=== PATIENT | female | born 1935 | race Caucasian/White ===

== ENCOUNTER → 2017-03-27 | Outpatient (CLI) | payer OTHER, MEDICARE ==
[~2017-03-27] MED LIST: AMLO5TAB2 PO; ASPCH81X PO; ATOR-14 PO; BIOT1POW3 SL; CALC-388 PO; CEPH500C2 PO; CHOL1CAP51 PO; FURO40TA3 PO; LPR25 PO; METF500T PO; MULT-190 PO; NAPR1TAB9 PO; OXYC15TA89 PO; SERT1TAB71 PO
== END | disposition home or self-care (01) ==
LOC: C.RDSM 14:01
PROVIDERS: ATTEND Orthopaedic Surgery Sports Medicine
DX: M17.0 Bilateral primary osteoarthritis of knee (principal)

== ENCOUNTER → 2018-03-23 | Outpatient (CLI) | payer OTHER, MEDICARE | END | disposition home or self-care (01) | LOC: C.RDSM 18:17 | PROVIDERS: ATTEND Orthopaedic Surgery Sports Medicine | DX: M17.0 Bilateral primary osteoarthritis of knee (principal) ==

== ENCOUNTER 2021-12-11 05:22 | Observation (INO) ==
--- NOTE | 2021-12-03 09:16 | Anesthesiology Consultation ---
Date of Service December 03, 2021 Assessment & Plan Chart Review Chart Review: Acceptable Risk for Surgery and Patient NOT seen in Pre Admission Testing Consults Requested none History Surgery Operation Date: 12/11/21 07:00 Proposed Procedures p Left Total Knee Arthroplasty - Jeremiah Jensen MD Height/Weight Height: 5 ft 1 in Weight: 81.647 kg Allergies Allergy/AdvReac Type Severity Reaction Status Date / Time No Known Allergies Allergy Verified 12/02/21 11:50 Medications Home Medications Medication Instructions Recorded Confirmed Last Taken amlodipine 5 mg tablet 5 mg PO QAM 07/24/21 12/02/21 Unknown apixaban 5 mg tablet (Eliquis) 5 mg PO BID 07/24/21 12/02/21 Unknown aspirin 81 mg tablet,delayed 81 mg PO QAM 07/24/21 12/02/21 Unknown release atorvastatin 20 mg tablet 20 mg PO HS 07/24/21 12/02/21 Unknown biotin 5 mg capsule 5 mg PO QAM 07/24/21 12/02/21 Unknown cholecalciferol (vitamin D3) 25 25 mcg PO QAM 07/24/21 12/02/21 Unknown mcg (1,000 unit) tablet (Vitamin D3) furosemide 40 mg tablet (Lasix) 40 mg PO QAM 07/24/21 12/02/21 Unknown metformin 500 mg tablet 500 mg PO BID 07/24/21 12/02/21 Unknown metoprolol tartrate 25 mg tablet 25 mg PO BID 07/24/21 12/02/21 Unknown sertraline 100 mg tablet (Zoloft) 100 mg PO QAM 07/24/21 12/02/21 Unknown vitamins A,C,I-pxkn-soebos 14,320 1 cap PO BID 07/24/21 12/02/21 Unknown unit-226 mg-200 unit capsule (PreserVision AREDS) estradiol (Estrace) 1 g VAGINAL UD 12/02/21 12/02/21 Unknown Past Medical History Medical History 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 no longer ta rolan. Port-A-Cath in place Left chest wall Exercise / Class Metabolic Activity III < 4 Walking/Shop/Light housework Past Family History Family History Mother Family history of diabetes mellitus Sister Family history of diabetes mellitus Other No family history of adverse response to anesthesia Past Surgical History Surgical History H/O lymph node biopsy H/O total hysterectomy History of appendectomy History of bilateral tubal ligation History of cataract surgery R/L History of cholecystectomy History of colonoscopy History of ectopic Laparoscopic surgery History of laparoscopy History of tooth extraction History of tubal ligation Past Anesthesia History No Hx of Anesthesia Complications and No Family Hx of Anesthesia Complications History of PONV No Hx of PONV and No Hx of Motion Sickness Social History Smoking Status: Never smoker Do You Dip or Chew Tobacco: No Hx Alcohol Use: No Hx Substance Use: No substance use type: does not use Testing Echocardiogram Date: 07/29/21 EF: 60% LV Function: normal RWMA: + none Other Findings: + diastolic dysfunction (grade 1) Valvular Disease: + (mild ; AVarea 1.45cm2;Peak Grad. 22 Torr;Mean grad. 12 Torr), + MS (mild) and + MR (mild) Stress Test Type: nuclear (lexiscan) Findings: + WNL
[2021-12-11] MEDS ORDERED: dexAMETHasone 4 MG TAB PO SCH (06:00)
[2021-12-11] MEDS ORDERED: LR 15ML/HR IV SCH (06:00)
[2021-12-11] MEDS ORDERED: TRANEXAMIC ACID 1,000 MG **IV Intra-op IV SCH (06:00)
[2021-12-11] MEDS ORDERED: ROPIVACAINE 0.5% HCL/PF 150 MG, BUPIVACAINE 0.75% MPF 20 ML, EPINEPHrine 0.15 MG, Ketor... INFIL SCH (06:00)
[2021-12-11] MEDS ORDERED: METOCLOPRAMIDE HCL 10 MG TABLET PO SCH (06:00)
[2021-12-11] MEDS ORDERED: FAMOTIDINE 20 MG TAB PO SCH (06:00)
[2021-12-11] MEDS ORDERED: LR 60ML/HR IV SCH (06:00)
[2021-12-11] MEDS ORDERED: Scopolamine 1 MG TDSY TD SCH (06:00)
[2021-12-11] MEDS ORDERED: TRANEXAMIC ACID 1,000 MG **IV Pre-op IV SCH (06:00)
[2021-12-11] MEDS ORDERED: traMADol HCL 50 MG TABLET PO SCH (06:00)
[2021-12-11] MEDS ORDERED: ceFAZolin 2000MG 2,000 MG/15 ML SYR IV SCH ×2 (06:00→16:15)
[2021-12-11] MEDS: ACETAMINOPHEN 500 MG TAB PO SCH ×4 (06:15→21:27)
[2021-12-11] MEDS ORDERED: BUPIVACAINE 0.5 % 5 MG/1 ML PF 10ML VIAL ONE (06:24)
[2021-12-11] MEDS ORDERED: ROPIVACAINE 0.5% 5 MG/ML 30 ML VIAL ONE (06:24)
[2021-12-11] MEDS ORDERED: MIDAZOLAM HCL 1 MG/ML 2ML VIAL ONE (06:33)
[2021-12-11] MEDS ORDERED: fentaNYL citrate 100 MCG/2 ML VIAL ONE (06:33)
[2021-12-11] MEDS ORDERED: LIDOCAINE 2% 2 ML VIAL/AMP(20MG/ML) INFIL ONE (06:33)
[2021-12-11] MEDS ORDERED: PROPOFOL IV EMULSION 10 MG/ML 20 ML VIAL IV ONE ×2 (06:33→09:29)
[2021-12-11] MEDS ORDERED: ORTHO JOINT ANESTHETIC ONE (06:38)
[2021-12-11] MEDS ORDERED: KETOROLAC 30 MG/ML VIAL IV PRN (06:46)
[2021-12-11] MEDS ORDERED: HYDROmorphone INJ 1 MG/ML SYRINGE IV PRN (06:46)
[2021-12-11] MEDS ORDERED: ONDANSETRON INJ 2 MG/ML 2 ML VIAL IV PRN ×2 (06:46→10:12)
[2021-12-11] MEDS ORDERED: ePHEDrine sulfate 50 MG/ML AMP IV PRN (06:46)
[2021-12-11] MEDS ORDERED: ATROPINE SULFATE 0.1 MG/ML 10ML SYR IV PRN (06:46)
[2021-12-11] MEDS ORDERED: PHENYLEPHRINE 100MCG/ML 5ML SYR IV PRN (06:46)
--- NOTE | 2021-12-11 06:46 | History & Physical Bridge Note ---
Date of Service December 11, 2021 History & Physical Bridge Note I have examined the patient, reviewed the History & Physical and in the interval since the performance of the History & Physical I have noted the following changes of clinical significance: no changes noted Patient is aware of the risks, is asymptomatic, and tested negative for COVID- 19. Consent addendum signed.
[2021-12-11] MEDS ORDERED: PHENYLEPHRINE 100MCG/ML 5ML SYR ONE (07:47)
[2021-12-11] MEDS ORDERED: ePHEDrine sulfate 50 MG/ML SYR ONE (07:47)
--- NOTE | 2021-12-11 09:51 | Post Operative Brief Note ---
Immediate Post Op Note v1 Date of Surgery December 11, 2021 Pre & Post Diagnosis Operation Date: 12/11/21 07:00 Pre-Op Diagnosis: Left Knee Osteoarthritis Post-Op Diagnosis: Left Knee Osteoarthritis I identified the patient and participated in the time-out.: Yes Procedure Operation Date: 12/11/21 07:00 Actual Procedures p Left Total Knee Arthroplasty(Left) - Jeremiah Jensen MD Surgeon Jeremiah Jensen MD Weatherstrip Machine Operator Gauri Lyons MD & M MOLLY Theodore Estimated Blood Loss 75 Findings Consistent with Post-Op Diagnosis Fluids 1400 cc Specimens Left knee Contents Anesthesia Type MAC Spinal Regional Complications none
--- NOTE | 2021-12-11 09:52 | Operative Report ---
Post Operative Report Pre & Post Diagnosis Operation Date: 12/11/21 07:00 Pre-Op Diagnosis: Left Knee Osteoarthritis Post-Op Diagnosis: Left Knee Osteoarthritis I identified the patient and participated in the time-out.: Yes Procedure Operation Date: 12/11/21 07:00 Actual Procedures p Left Total Knee Arthroplasty(Left) - Jeremiah Jensen MD Surgeon Jeremiah Jensen MD Automobile Bumper Straightener Gauri Lyons MD & M MOLLY Theodore Estimated Blood Loss 75 Findings See Below Examined Under Anesthesia: ROM -- There was 3 degrees to 120 degrees of flexion Ligamentous examination -- revealed stable Pedro, posterior drawer, varus and valgus stress at 0 and 30 degrees. [place] Type IV changes of Medial compartment, Patellofemoral compartment, and LFC. Intercondylar and marginal osteophytes. Significant synovitis. Fluids 1400 cc Specimens Left knee contents Anesthesia Type MAC Spinal Regional Complications none Indications This is a 85-year-old female who has clinical and radiographic findings consistent with osteoarthritis of the a left knee. I recommended that a left total knee replacement be performed. The patient understands the risks of surgery, which include but not limited to: bleeding, infection, re-operation, damage to nerves and arteries, continued knee pain, knee stiffness, DVT, and . The patient understands all of these instructions and explanations, all of his questions have been satisfactorily addressed and the patient has elected to proceed. Informed consent was signed. Description of Procedure IMPLANTS: 1. Femur: Triathlon #2 Left PS, with pegs. 2. Tibia: Triathlon #3 [place] with 12 x 50 mm stem. 3. Insert: Triathlon #3 x 16 mm TS X3 poly. 4. Patella: Triathlon A29 x 9 mm X3 poly. 5. Simplex cement. Procedure: The patient was taken to the Operating Room and placed in the supine position after spinal and adductor canal nerve block was administered. My initials and a multidisciplinary time-out were used to identify the left leg as the correct operative limb. A tourniquet was placed high in the thigh. Prior to the incision, 2 grams of intravenous Ancef were given. The left leg was then prepped and draped in a standard sterile fashion. An Esmarch was used to exsanguinate the leg and the tourniquet was inflated to 250 mmHg. The planned mid-line 20 cm incision was created exposing the extensor mechanism. The medial parapatellar arthrotomy was made and the patella was everted. The patella was addressed first. It was prepared by reaming from 22 mm down to 13 mm. An A29 button was found to fit best. The peg holes were made in the standard fashion. The femur was addressed next and the guide porfirio was placed intramedullary. The initial cutting block was placed with 5 degrees of valgus and removing 4 mm for the distal cut. The cut was made and the 4-in-1 cutting block for a size 3 femur was placed. These cuts and the cuts to place the box were made in the standard fashion. Later a 1.5mm AP shift was preformed and recut using the 4-in-1 cutting block for size 2 to correct the flexion gap. Our attention was then drawn to the tibia cut with the external cutting guide, taking 2 mm from the medial low side. There was sufficient extension gap to fit a 13 mm spacer,, but it was tight in flexion. The PCL was released as was popliteus tendon, but the flexion gap was still tight. The Femur was re-cut as above and there was now excellent flexion and extension gap to fit a 16mm spacer. A #3 Tibial baseplate fit well. A trial with a 16 mm TS spacer showed excellent stability in both flexion and extension, with good ligament balance, and thumbs free patellar tracking. Range of motion of 0-125 degrees. The tibial baseplate was prepped for the keel and stem. A stem was used due to some areas of soft bone, to avoid subsidence. All the trial components were tested again, with good stability and thumbs free tracking of the patella. All components were removed. The tourniquet was deflated. Hemostasis was obtained. 90 ml of total knee cocktail were injected into the soft tissues and periosteum. A bone plug was placed in the femur and covered with bone wax. After a 15 minute break, the limb was exsanguinated again and the tourniquet was re-inflated. All surfaces were copiously irrigated prior to placement of the components. The femoral component followed by Tibial baseplate were cemented in place and a 16 mm trial placed. Next, the patellar button was placed using the another batch of Simplex cement. Again with the 16 mm trial TS poly in place the range of motion and stability were unchanged. Once the cement had cured, the 16 mm X3 TS poly was placed. The ROM, stability as well as thumbs free patellar tracking were excellent. ROM 0-125 degrees. The extensor mechanism was closed with 1-0 and 0 Vicryl with the knee bent approximately 60 degrees in a standard fashion. The peritenon and deep fascia was closed with 2-0 Vicryl. The subcutaneous layer was closed with 3-0 Vicryl. The skin was closed with Zipline and shield. The limb was cleaned and dried. 4x4 dressing was placed over top followed by ABDs, sterile Webril, and a foot to thigh Darryn bandage. The patient was then transferred to the Recovery Room in stable condition. The sponge and needle counts were correct. POST-OP INSTRUCTIONS: The patient will be WBAT. The patient will be admitted to the hospital. Labs will be obtained during the stay. DVT prophylaxis will included aspirin for 6 weeks, TEDs, and mechanical foot pumps. The dressing will be changed prior to their discharge or postop day #2 and covered with a Silverlon dressing, whichever comes first. I attest to the content of the Intraoperative Record and any orders documented therein. Any exceptions are noted below.
--- NOTE | 2021-12-11 10:07 | Operative Report ---
Post Operative Report Pre & Post Diagnosis Operation Date: 12/11/21 07:00 Pre-Op Diagnosis: Left Knee Osteoarthritis Post-Op Diagnosis: Left Knee Osteoarthritis I identified the patient and participated in the time-out.: Yes Procedure Operation Date: 12/11/21 07:00 Actual Procedures p Left Total Knee Arthroplasty(Left) - Jeremiah Jensen MD Surgeon Dov. Jazz Jensen Erp Project Manager Gauri Lyons MD & M MOLLY Theodore Estimated Blood Loss 75 Findings Consistent with Post-Op Diagnosis Consistent with post op diagnosis Specimens Synovial tissue Description of Procedure I participated in prepping dressing and assisted Dr. Jensen during the procedure. Please see Dr. Jensen note. I attest to the content of the Intraoperative Record and any orders documented therein. Any exceptions are noted below. Supervising Physician Co-Signing Physician Notes Dr. Jensen
--- NOTE | 2021-12-11 10:11 | Operative Report ---
Post Operative Report Pre & Post Diagnosis Operation Date: 12/11/21 07:00 Pre-Op Diagnosis: Left Knee Osteoarthritis Post-Op Diagnosis: Left Knee Osteoarthritis I identified the patient and participated in the time-out.: Yes Procedure Operation Date: 12/11/21 07:00 Actual Procedures p Left Total Knee Arthroplasty(Left) - Jeremiah Jensen MD Surgeon Dr. Jeremiah Jensen Consumer Safety Inspector Gauri Lyons MD & M MOLLY Theodore Estimated Blood Loss 75 Findings Consistent with Post-Op Diagnosis Specimens synovium left knee Description of Procedure Pt was taken to operating room, placed under general anesthesia with peripheral nerve block. Pt was given 2mg Ancef IV. Prepped and draped in sterile fashion. I was present during the entire case and assisted with positioning, instrumentation, closure and dressings. Fellow was also present during the entire procedure. Please see Dr. Jensen's op report for further detail. Pt was awake and transferred to PACU in stable condition I attest to the content of the Intraoperative Record and any orders documented therein. Any exceptions are noted below. Supervising Physician Co-Signing Physician Notes Dr. Jensen
[2021-12-11] MEDS ORDERED: oxyCODONE HCL IR 5 MG TAB (IMMEDIATE RELEASE) PO PRN (10:12)
[2021-12-11] MEDS ORDERED: bisacodyL 10 MG SUPP PR PRN (10:12)
[2021-12-11] MEDS ORDERED: METOCLOPRAMIDE HCL INJ 5 MG/ML 2 ML VIAL IV PRN (10:12)
[2021-12-11] MEDS ORDERED: MAGNESIUM HYDROXIDE SUSP 30 ML UDC PO PRN (10:12)
[2021-12-11] MEDS ORDERED: NALOXONE HCL 0.4 MG/1 ML VIAL/CARP IV PRN (10:12)
[2021-12-11] MEDS ORDERED: HYDROmorphone INJ 0.5 MG/0.5 ML SYR IV PRN (10:12)
[2021-12-11] MEDS ORDERED: PHARMACY GLYCEMIC MGMT CONSULT PRN (10:52)
--- NOTE | 2021-12-11 12:12 | XRay Report ---
XR knee LT 1 or 2V routine CLINICAL HISTORY: Surgical Post Op. Status post knee replacement COMPARISON STUDY: No previous studies for comparison. TECHNIQUE: 2 left knee views FINDINGS: The patient is status post total knee replacement. The prosthetic components are in anatomi c alignment with no acute abnormality seen. Air is present within the soft tissues from the procedure . IMPRESSION: Status post total knee replacement and resurfacing of the patella. ACT 112: Negative or not required by law. Electronically signed by: Say Odonnell M.D. 12/11/2021 12:10 PM
--- NOTE | 2021-12-11 12:23 | Anesthesiology Progress Note ---
Date of Service December 11, 2021 Anesthesia Post Procedure Vital Signs Vital Signs: Temp Pulse Pulse Resp BP BP Pulse Ox 12/11/21 12:03 60 18 133/56 L 94 12/11/21 11:15 36.9 C 62 21 123/59 L 94 12/11/21 11:05 36.9 C 61 17 122/40 L 94 12/11/21 10:55 36.9 C 60 14 124/47 L 92 12/11/21 10:45 36.9 C 61 16 125/46 L 92 12/11/21 10:35 60 14 116/67 93 12/11/21 10:25 63 19 127/49 L 96 12/11/21 10:15 61 18 128/52 L 99 12/11/21 10:09 36.2 C L 65 12 126/39 L 98 12/11/21 05:58 36.7 C 48 L 22 205/78 H 98 Pain Intensity Left Knee: Pain Intensity: 0 Transfer of Care Handoff Completed per policy Notes Mental Status: alert / awake / arousable Patient Amnestic to Procedure: Yes Nausea / Vomiting: adequately controlled Pain: adequately controlled Airway Patency, RR, SpO2: stable & adequate BP & HR: stable & adequate Hydration State: stable & adequate Anesthetic Complications: no major complications apparent
--- NOTE | 2021-12-11 12:36 | Consultation ---
Date of Consultation December 11, 2021 Assessment & Plan (1) Osteoarthritis of left knee: s/p Left TKR today by Dr Jensen. Defer pain management, fluids, dispo to ortho team. Agree with resumption of Eliquis as soon as acceptable from surgical standpoint. (2) Status post total left knee replacement: by Dr Jeremiah Jensen. (3) Type 2 diabetes mellitus: Very well controlled with metformin monotherapy as outpatient. Recent a1c near 6%. Hold metformin while inpatient. Did receive dexamethasone perioperatively thus BSGs likely to be high for the next 24 hours or so. Add novolog sliding scale with correction factor of 35. Add carb coverage if needed. (4) Essential hypertension: Would hold lasix today/tomorrow pending AM labs on 12/12/21. Cont amlodipine. Cont metoprolol BID. (5) Superficial thrombophlebitis of left leg: Left foot - doppler report is scanned into her chart. Repeat doppler was from 07/2021. Treated with Eliquis since the superficial clot was first detected in 03/2021. Resume Eliquis when safe from surgical standpoint. NO DVT seen in either leg from the 07/2021 dopplers. No prior h/o DVT and/or PE. (6) Aortic stenosis: mild on echo this past fall 2020, done at [facility]. asymptomatic. will need yearly surveillance moving forward. (7) Obesity (BMI 30-39.9): BMI 37 (8) Hx of lymphoma: Initial dx in 1998. Recurrences in the requiring repeat treatment. In remission per patient, and has surveillance scans scheduled for this summer 2021. No recent B symptoms to suggest recurrent disease. (9) DVT prophylaxis: Eliquis 5mg BID. add mag level to her CBC, BMP in am tomorrow add miralax for bowel maintenance Thank you for this consult. We will follow with you. History of Present Illness Requesting Physician: Jeremiah Jensen MD Reason for Consultation: post-op medical management Attending Physician: Jeremiah Jensen MD History of Present Illness Very pleasant 85yo female with h/o lymphoma s/p chemotherapy in the early , T2DM, HTN, and unprovoked RLE DVT in 2020 - currently on Eliquis - who underwent elective left TKR earlier this am by Dr Jeremiah Jensen. She was resting comfortably during my consult on the orthopedic floor. She offered no complaints. She denied any post-op chest pain, dyspnea, abd pain, nausea or emesis. She admits that she hasn't been checking her BSGs at home for her DM. With respect to the RLE DVT - sometime in 2020 she developed acute leg pain and swelling. Her PCP sent her to [facility] and dopplers confirmed LLE DVT. She never needed hospitalization. Cause of the DVT was uncertain. She has been on Eliquis since. In late summer 2020/early fall 2020 she underwent a nuclear stress test in preparation for her left TKR. She had been having random episodes of chest pain over the left breast region which prompted the stress test. The stress was negative. About the same time she reports having a repeat doppler of the LLE and she states that the DVT had extended into the thigh? Either way she does not recall being told she had PEs. Patient reports she wishes to go to [facility] for rehab following this admission, and then she is moving to [place] later this year to live with her daughter. Allergies Allergy/AdvReac Type Severity Reaction Status Date / Time No Known Allergies Allergy Verified 12/11/21 05:58 Home Medications Medication Instructions Recorded Confirmed Type amlodipine 5 mg tablet (Norvasc) 5 mg PO QAM 07/24/21 12/11/21 History apixaban 5 mg tablet (Eliquis) 5 mg PO BID 07/24/21 12/11/21 History aspirin 81 mg tablet,delayed 81 mg PO QAM 07/24/21 12/11/21 History release atorvastatin 20 mg tablet 20 mg PO HS 07/24/21 12/11/21 History biotin 5 mg capsule 5 mg PO QAM 07/24/21 12/11/21 History cholecalciferol (vitamin D3) 25 25 mcg PO QAM 07/24/21 12/11/21 History mcg (1,000 unit) tablet (Vitamin D3) furosemide 40 mg tablet (Lasix) 40 mg PO QAM 07/24/21 12/11/21 History metformin 500 mg tablet 500 mg PO BID 07/24/21 12/11/21 History metoprolol tartrate 25 mg tablet 25 mg PO BID 07/24/21 12/11/21 History sertraline 100 mg tablet (Zoloft) 100 mg PO QAM 07/24/21 12/11/21 History vitamins A,C,E-vfvf-qruopu 14,320 1 cap PO BID 07/24/21 12/11/21 History unit-226 mg-200 unit capsule (PreserVision AREDS) Patient History Medical History (Updated 12/11/21 @ 13:34 by Sandor Mcneal) 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 Depression Diabetes mellitus, type 2 NIDDM Hearing deficit 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 no longer taking. Port-A-Cath in place Left chest wall Surgical History (Updated 12/11/21 @ 13:34 by Sandor Mcnael) H/O lymph node biopsy H/O total hysterectomy History of appendectomy History of bilateral tubal ligation History of cataract surgery R/L History of cholecystectomy History of colonoscopy History of ectopic Laparoscopic surgery History of laparoscopy History of tooth extraction History of tubal ligation Family History (Updated 12/11/21 @ 13:19 by Sandor Mcneal) Mother Family history of diabetes mellitus Myocardial infarction PAD (peripheral artery disease) Sister Family history of diabetes mellitus Father Myocardial infarction Other No family history of adverse response to anesthesia Social History (Updated 12/11/21 @ 13:20 by Sandor Mcneal) Smoking Status: Never smoker Second Hand Exposure: Yes (SPOUSE SMOKED); Do You Dip or Chew Tobacco: No; Tobacco Cessation Education Requested by Patient: No Hx Alcohol Use: No Hx Substance Use: No Preferred Language: Ecuadorean Communication Ability: Effective Communication Ability Comment: blind in left eye Shucker Required: No Beliefs That Will Affect Care: None marital status: / Current Living Situation: Alone Current Living Situation Comment: HAS ASSISTANCE WITH [employer] 2X MONTHLY current occupational status: retired 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 [place] How many Children do You have: 1 Other Information That Helps Us Care for You: No other: currently living in apartment at [facility] in [place] Feels Safe at Home: Yes Safety Concerns: Feels Safe At This Time Assistive Devices: Glasses, Hearing Aid - Left and Walker Review of Systems Review of Systems: gen - no fevers, chills or chronic sweats; no significant weight loss; good appetite eyes - blindness reported HENT - no loss of taste/smell; no dysphagia CV - random cp spells last year, negative nuc stress test pulm - no cough, no ROBLES GI - no abd pain, nausea, emesis, diarrhea - urinary incontinence musculo - chronic L knee pain skin - no rashes neuro - no headaches lymph - she has not noted lymph nodes in the neck, armpits, etc psych - depression, but controlled with meds Physical Exam Physical Exam: gen - NAD, obese, pleasant eyes - PERRL; lens implants b/l mouth - MMM neck - prominent fat pad anterior neck but no thyroidmegaly; no lymph nodes; no JVD heart - RRR, s1 s2, 2/6 systolic murmur heard loudest apex lungs - CTA b/l abd - soft, no HSM, BS+, NT, ND ext - left knee wrapped in ANDREEA; trace-1+ edema b/l legs; pulses 2+ b/l feet psych - a/o x 3 skin - no rash, PORT left upper chest clean neuro - strength 5/5 x 4 exts; DTRs upper exts 2+ lymph - no cervical lymph nodes b/l Results & Data ([facility]) Vital Signs (Past 12 Hours) Vital Signs Temp Pulse Pulse Resp BP BP Pulse Ox 12/11/21 12:30 60 18 137/63 93 12/11/21 12:03 60 18 133/56 L 94 12/11/21 11:30 37.0 C 62 16 142/50 H 94 12/11/21 11:15 36.9 C 62 21 123/59 L 94 12/11/21 11:05 36.9 C 61 17 122/40 L 94 12/11/21 10:55 36.9 C 60 14 124/47 L 92 12/11/21 10:45 36.9 C 61 16 125/46 L 92 12/11/21 10:35 60 14 116/67 93 12/11/21 10:25 63 19 127/49 L 96 12/11/21 10:15 61 18 128/52 L 99 12/11/21 10:09 36.2 C L 65 12 126/39 L 98 12/11/21 05:58 36.7 C 48 L 22 205/78 H 98 Laboratory Results Laboratory Results - last 24 hr 12/11/21 12/11/21 12/11/21 05:45 06:15 10:13 POC Glucose 142 H 166 H SARS-CoV-2, RNA, NAAT Blood Type A Positive Antibody Screen NEGATIVE 12/11/21 12/11/21 12:01 Unknown POC Glucose 167 H SARS-CoV-2, RNA, NAAT NEGATIVE Blood Type Antibody Screen Diagnostic Findings 07/29/21 - doppler b/l LEs - superficial thrombophlebitis of distal left leg; NO DVT either leg 2020 - lexiscan nuclear stress test - negative for ischemia recent a1c 6.1% 11/2021 PG Care Time/CCT Total # of Minutes Spent Total Time Spent with Patient: Total time spent is greater than 50% in coordination of care (as documented) at patient's floor/unit and/or counseling patient: Coding Level of Care Code 98220 Subseq Hosp Care Lvl 3 Diagnoses Osteoarthritis of left knee M17.12 Status post total left knee replacement Z96.652 Type 2 diabetes mellitus E11.9 Essential hypertension I10 Superficial thrombophlebitis of left leg I80.02 Aortic stenosis I35.0 Obesity (BMI 30-39.9) E66.9 DVT prophylaxis Z29.9 Hx of lymphoma Z85.72
[2021-12-11] MEDS ORDERED: POLYETHYLENE (MIRALAX) 17 GM PACK PO ONE (13:45)
--- NOTE | 2021-12-11 14:07 | Pharmacy Report ---
Pharmacy Glycemic Short Note 2 - Date of Service December 11, 2021 - Glycemic Short BSG Results (Last 24 hours): 12/11/21 12/11/21 12/11/21 06:15 10:13 12:01 POC Glucose 142 H 166 H 167 H OUTPATIENT ANTIDIABETIC REGIMEN: * Metformin 500mg PO BID * HbA1c: 6.1% (11/26/21) ASSESSMENT: * Ms Brush is an 85yo diabetic F who is POD 0 s/p L TKA with Dr Jensen this morning. * She received a dose of PO dexamethasone pre-op, which is expected to contribute to steroid-induced hyperglycemia. * Novolog added for now. Do not anticipate the need for basal insulin. PLAN FOR INPATIENT GLYCEMIC CONTROL: * Hold outpatient oral diabetes medications * Basal insulin * none at this time * Bolus insulin * NovoLog per scale ACHS or Q6hrs while NPO * Goal Range: Low 120 mg/dL - High 150 mg/dL * Correction Factor: 30 mg/dL/unit * Nutritional / Prandial insulin per carb ratio of 1 unit per 10 grams CHO consumed PLAN FOR DISCHARGE: * A1c: 6.1% * This indicates excellent glycemic control as an outpt. * Anticipate that pt may resume home regimen on discharge, as long as no contraindications are present.
[2021-12-11] MEDS: SODIUM CHLORIDE 0.9% 1000ML 1,000 ML IV SCH ×2 (15:31→21:26)
[2021-12-11] MEDS ORDERED: Scopolamine CHECK PATCH PLACEMENT SCH (16:00)
[2021-12-11] MEDS: ASCORBIC ACID 500 MG TAB PO SCH (17:19)
[2021-12-11] MEDS: FERROUS GLUCONATE 324 MG TAB PO SCH (17:19)
[2021-12-11] MEDS: INSULIN ASPART PER UNIT SC SCH ×2 (17:23→21:30)
[2021-12-11] MEDS ORDERED: SENNA 8.6 MG TAB PO SCH (21:00)
[2021-12-11] MEDS ORDERED: ATORVASTATIN 20 MG TAB PO SCH (21:00)
[2021-12-11] MEDS: METOPROLOL TARTRATE 25 MG TAB PO SCH (21:27)
[2021-12-11] MEDS: DOCUSATE SODIUM 100 MG CAP PO SCH (21:27)
[2021-12-12] MEDS: ACETAMINOPHEN 500 MG TAB PO SCH ×2 (05:03→13:14)
[2021-12-12 06:13] LABS: Hematocrit (blood only) 35.3 % (37-47); Hemoglobin 11.2 g/dL (12.0-16.0); Mean Corpuscular Hemoglobin 28.2 pg (25-34); Mean Corpuscular Hgb Conc 31.7 g/dL (32-36); Mean Corpuscular Volume 88.9 fL (80-100); Mean Platelet Volume 10.6 fL (7.4-10.4); Platelet Count 204 K/uL (130-400); RDW Coefficient of Variation 15.3 % (11.5-14.5); RDW Standard Deviation 49.5 fL (36.4-46.3); Red Blood Count 3.97 M/uL (4.2-5.4); White Blood Count 12.58 K/uL (4.8-10.8)
[2021-12-12 06:34] LABS: BUN Creatinine Ratio 29.6 (10-20); Calcium 8.7 mg/dl (8.5-10.1); Creatinine Clr Calc Pharmacy 58.6 ml/min; Est GFR (African American) 91.3 ml/min; Est GFR (Non-African American) 78.8 ml/min; Magnesium 1.5 mg/dl (1.7-2.4); Potassium 4.4 mmol/L (3.5-5.1)
[2021-12-12] MEDS ORDERED: MAGNESIUM SULFATE / D5W 1 GM/100 ML BAG IV ONE (08:00)
[2021-12-12] MEDS: DOCUSATE SODIUM 100 MG CAP PO SCH (08:05)
[2021-12-12] MEDS: FERROUS GLUCONATE 324 MG TAB PO SCH (08:06)
[2021-12-12] MEDS: ASCORBIC ACID 500 MG TAB PO SCH (08:06)
[2021-12-12] MEDS: METOPROLOL TARTRATE 25 MG TAB PO SCH (08:06)
[2021-12-12] MEDS: INSULIN ASPART PER UNIT SC SCH ×2 (08:12→12:19)
[2021-12-12] MEDS ORDERED: MAGNESIUM SULFATE / D5W 1 GM/100 ML BAG IV SCH (08:30)
[2021-12-12] MEDS ORDERED: amLODIPine BESYLATE 5 MG TAB PO SCH (09:00)
[2021-12-12] MEDS ORDERED: SERTRALINE HCL 100 MG TABLET PO SCH (09:00)
[2021-12-12] MEDS ORDERED: APIXABAN 5 MG TABLET PO SCH (09:00)
[2021-12-12] MEDS ORDERED: FUROSEMIDE 40 MG TAB PO SCH (09:00)
[2021-12-12] MEDS ORDERED: POLYETHYLENE (MIRALAX) 17 GM PACK PO SCH (09:00)
[2021-12-12] MEDS ORDERED: MULTIVITAMIN TAB PO SCH (09:00)
[2021-12-12] MEDS ORDERED: ASPIRIN 81 MG ECTAB PO SCH (09:00)
--- NOTE | 2021-12-12 09:37 | Orthopedic Progress Note ---
Date of Service December 12, 2021 Assessment & Plan (1) Status post total left knee replacement: Plan: Dressing was changed today by me. Silverlon dressing was applied. This can remain in place until she is seen in the office. Anticipate discharge to [facility] today. She has already been seen by Dr. Jensen this morning. Continue PT/OT. Continue use of her walker. Continue Eliquis 5 mg twice daily. Follow-up in 2 weeks for staple removal on December 26. Admission and Anticipated Discharge Date Admission Date: December 11, 2021 Subjective She is seen in her room this morning. She has no current complaints. She did finish her breakfast this morning. She feels ready for discharge to [facility]. She denies any chest pain, shortness of breath, nausea, vomiting, or significant knee pain. Review of Systems Review of Systems: Unchanged from yesterday. Physical Exam Physical Exam: General: Well-developed, well-nourished, elderly female, in no acute distress. Laying in bed. Alert and oriented. Conversive. Skin: Warm and dry with good turgor. No rashes. Postsurgical dressings are in place on the left leg. Musculoskeletal: Left knee evaluation reveals an intact postsurgical dressing. Upon removal, zip line is in place. She has expected postoperative edema. No ecchymosis or erythema. Scant dried drainage on her dressings. No active bleeding. Intact motor function to her knee and ankle. She is able to perform a straight leg raise. Lacks just a few degrees of terminal extension. Flexion to around 90 degrees. Neurologic: Gross sensation is intact across the left leg by soft touch. Results & Data ([facility]) Vital Signs (Past 12 Hours) Vital Signs Temp Pulse Pulse Resp BP Pulse Ox 12/12/21 07:30 36.4 C L 113 H 23 134/74 95 12/12/21 06:37 50 L 12/12/21 06:36 46 L 151/72 H 92 12/12/21 05:33 52 L 12/12/21 05:23 48 L 93 12/12/21 02:24 36.6 C 56 L 16 157/67 H 96 12/11/21 22:24 36.7 C 60 16 136/67 98 Laboratory Results H&H today was 11.2 and 35.3. White count of 12.58. Platelets normal at 204,000. PRP is unremarkable. Sodium 4.4, chloride 110, BUN 21, creatinine 0.71. BSG this morning is 188.
[2021-12-12] MEDS ORDERED: hydrALAZINE HCL 20 MG/ML VIAL IV STA (12:24)
--- NOTE | 2021-12-12 12:30 | Hospitalist Progress Note ---
Date of Service December 12, 2021 Assessment & Plan (1) Osteoarthritis of left knee: Plan: s/p Left TKR 12/[address] Jensen. Defer pain management, fluids, dispo to ortho team. Agree with resumption of Eliquis as soon as acceptable from surgical standpoint. (2) Status post total left knee replacement: Plan: by Dr Jeremiah Jensen. (3) Type 2 diabetes mellitus: Plan: Very well controlled with metformin monotherapy as outpatient. Recent a1c near 6%. Hold metformin while inpatient. Did receive dexamethasone perioperatively thus BSGs likely to be high for the next 24 hours or so. Add novolog sliding scale with correction factor of 35. Add carb coverage if needed. (4) Essential hypertension: Plan: Can resume Lasix tomorrow as prescribed. Cont amlodipine. Cont metoprolol BID. (5) Superficial thrombophlebitis of left leg: Plan: Left foot - doppler report is scanned into her chart. Repeat doppler was from 07/2021. Treated with Eliquis since the superficial clot was first detected in 03/2021. Resume Eliquis when safe from surgical standpoint. NO DVT seen in either leg from the 07/2021 dopplers. No prior h/o DVT and/or PE. (6) Aortic stenosis: Plan: mild on echo this past fall 2020, done at [facility]. asymptomatic. will need yearly surveillance moving forward. (7) Obesity (BMI 30-39.9): Plan: BMI 37 (8) Hx of lymphoma: Plan: Initial dx in 1998. Recurrences in the requiring repeat treatment. In remission per patient, and has surveillance scans scheduled for this summer 2021. No recent B symptoms to suggest recurrent disease. (9) DVT prophylaxis: Plan: Eliquis 5mg BID. Plan: Magnesium low today, replacement ordered. At this time, she is medically stable for discharge to rehab once she is done getting the [employer] riders. Thank you for the consult, will sign off at this time. Admission and Anticipated Discharge Date Admission Date: December 11, 2021 Subjective Patient seen on rounds this morning. She denies any chest pain, shortness of breath, nausea, vomiting, or significant knee pain. For d/c to rehab today. Review of Systems Review of Systems: CONSTITUTIONAL: Denies weight loss/gain, fever and chills, fatigue, malaise, generalized weakness. HEENT: Denies changes in vision and hearing. RESPIRATORY: Denies SOB, cough, wheezing. CV: Denies palpitations, CP, lower extremity edema, orthopnea, PND. GI: Denies abdominal pain, nausea, vomiting and diarrhea. : Denies dysuria and urinary frequency, urgency, hesitancy. MUSCULOSKELETAL: Denies myalgia and joint pain. SKIN: Denies rash and pruritus. NEUROLOGICAL: Denies headache, syncope, focal weakness, numbness, tingling. PSYCHIATRIC: Denies recent changes in mood. Denies anxiety and depression. Physical Exam Physical Exam: GENERAL: 85 yo WD/WN elderly WF. NAD. LUNGS: Clear to auscultation bilaterally. No accessory muscle use. No W/R/R. CARDIOVASCULAR: Regular rate and rhythm. No M/G/R. No JVD. ABDOMEN: Soft, non-tender and non-distended. BS normal x 4 quad. EXTREMITIES: L knee wrapped with odalis. Trace edema noted. NV intact. Neg jayesh's on L. NEUROLOGIC: A&O x3. PSYCHIATRIC: Cooperative. Appropriate mood and affect. SKIN: Warm, dry, intact. No rashes or lesions. Results & Data Results & Data ([facility]) Vital Signs (Past 12 Hours) Vital Signs Temp Pulse Pulse Pulse Resp BP BP 12/12/21 12:22 36.5 C 51 L 50 L 60 12 138/72 205/78 H 12/12/21 11:30 36.5 C 51 L 12 138/72 12/12/21 07:30 36.4 C L 113 H 23 134/74 12/12/21 06:37 50 L 12/12/21 06:36 46 L 151/72 H 12/12/21 05:33 52 L 12/12/21 05:23 48 L 12/12/21 02:24 36.6 C 56 L 16 157/67 H Pulse Ox 12/12/21 12:22 92 12/12/21 11:30 92 12/12/21 07:30 95 12/12/21 06:37 12/12/21 06:36 92 12/12/21 05:33 12/12/21 05:23 93 12/12/21 02:24 96 Laboratory Results 12/12/21 05:36 12/12/21 05:36 PG Care Time/CCT Total # of Minutes Spent Total Time Spent with Patient: Total time spent is greater than 50% in coordination of care (as documented) at patient's floor/unit and/or counseling patient: Coding Level of Care Code 90718 Subseq Hosp Care Lvl 2 Diagnoses Osteoarthritis of left knee M17.12 Status post total left knee replacement Z96.652 Type 2 diabetes mellitus E11.9 Essential hypertension I10 Superficial thrombophlebitis of left leg I80.02 Aortic stenosis I35.0 Obesity (BMI 30-39.9) E66.9 Hx of lymphoma Z85.72 DVT prophylaxis Z29.9
--- NOTE | 2021-12-16 16:53 | Discharge Summary ---
Date of Service December 16, 2021 Admission HPI Per Admitting Provider Marcelina is a 85 year old female POD 1 s/p left total knee arthroplasty. The patient was admitted last night for 23 hour observation. Vitals are stable. No major events over night. Pain is well controlled. Pt is tolerating PO intake. Voiding adequate amounts. Working well with PT/OT. Labs and x-rays normal. Pt denies any fevers, chills, chest pain, SOB, N/V/D. Pt is medically stable for discharge today. Admission Exam Per Admitting Provider Focusing on the patient's left lower extremity: Dressing/Splint is clean, dry and in-tact with minor drainage noted Incisions are clean, dry, and well approximated with no signs of excessive redness, warmth or purulent drainage. Silverlon was placed 2+ DP pulses Sensation to light touch is intact distally Motor to the gastrocsoleus, tibialis anterior and EHL nerves are in tact Calf supple nontender Principal Diagnosis Left primary osteoarthritis status post left total knee arthroplasty Discharge Exam General: AA&O x 3, NAD, Calm and cooperative during exam heart: RRR Lungs: CTABL ABD: Soft and non-distended Focusing on the patient's left lower extremity: Dressing/Splint is clean, dry and in-tact with minor drainage noted Incisions are clean, dry, and well approximated with no signs of excessive redness, warmth or purulent drainage. Silverlon was placed 2+ DP pulses Sensation to light touch is intact distally Motor to the gastrocsoleus, tibialis anterior and EHL nerves are in tact Calf supple nontender Discharge Data Allergies Allergy/AdvReac Type Severity Reaction Status Date / Time No Known Allergies Allergy Verified 12/11/21 05:58 Consultations 12/06/21 10:48 Consult Hospitalist Routine Procedures Performed Operation Date: 12/11/21 07:00 Actual Procedures p Left Total Knee Arthroplasty(Left) - Jeremiah Jensen MD Ordered Studies 12/11/21 10:51 US - OR guided needle placemen Routine Hospital Course (1) Status post total left knee replacement: POD #1 s/p L TKA with Dr. Jensen, doing as well as expected. Carb control diet. WBAT LLE. OOB to chair. Continue pain control. Check labs tomorrow. DVT prophylaxis: TEDs 3 weeks, foot pumps while in hospital, resume anticoagulants. PT/OT. D/C planning Total Time Total Time Spent Total Time Spent (In Minutes): 30 minutes Discharge Plan Discharge Items Patient Disposition: Transfer [facility] Reason For Visit: Left Knee Osteoarthritis Discharge Diagnosis: s/p left total knee arthroplasty Condition on Discharge: Good Activity: Per Instructions section Lifting: Wait until after follow-up appointment Exercise/Sports: Wait until after follow-up appointment Weightbearing: Left weightbearing Non-emergency contact: Surgeon Call non-emergency contact if: your pain is not controlled, your temperature is above 101, your wound has increased redness, your wound has increased drainage and your wound pain has increased Follow-up/Referrals: Sapphire Sanford MD [Primary Care Provider] - Erica Theodore PA-C [Physician [employer]] - 12/26/21 10:45 am Diet: Carb Consistent or DM2 and Heart Healthy Addtl Attending Provider Instructions: Weight bearing as tolerated with walker/cane Leave dressing in tact You may shower with Silverlon dressing in tact. Do not submerge or soak incision. Pat dry after shower and keep incision clean and dry. Pain control: Tylenol 500-1000mg every 6 hours and tramadol 50mg every 8 hours as needed Frequent ice and elevation above heart DVT prophylaxis: resume Eliquis and Aspirin, compression stocking for two weeks Home exercises/physical therapy Follow up in two weeks with Erica Theodore PA-C at [facility] Pending Studies at Discharge: Yes Studies:: syn[employer]ium Stand-Alone Forms: My [employer] Skilled Items Patient informed of condition?: Yes DNR: No Discharge Level of Care: Skilled Communicable Disease: No Discharge Prognosis: Stable Lines: None Urinary Catheter: No Medications and DC Order Prescriptions: New tramadol 50 mg tablet 50 mg PO Q8H PRN (Reason: pain) Qty: 20 RF: 0 Continued furosemide [Lasix] 40 mg Tablet 40 mg PO QAM RF: 0 metformin 500 mg Tablet 500 mg PO BID RF: 0 atorvastatin 20 mg Tablet 20 mg PO HS RF: 0 biotin 5 mg Capsule 5 mg PO QAM RF: 0 sertraline [Zoloft] 100 mg Tablet 100 mg PO QAM RF: 0 amlodipine [Norvasc] 5 mg Tablet 5 mg PO QAM RF: 0 aspirin 81 mg Tablet,Delayed Release (Dr/Ec) 81 mg PO QAM RF: 0 metoprolol tartrate 25 mg Tablet 25 mg PO BID RF: 0 cholecalciferol (vitamin D3) [Vitamin D3] 25 mcg (1,000 unit) Tablet 25 mcg PO QAM RF: 0 PreserVision AREDS [id number] Capsule 1 cap PO BID RF: 0 Eliquis 5 mg Tablet 5 mg PO BID RF: 0 Discharge Orders: Discharge Order (Routine); Ordered 12/12/21 Ordered By: Erica Theodore Admission Data Admit Date/Time: 12/11/21 10:12 Attending Provider: Jeremiah Jensen Admit Provider: Jeremiah Jensen Primary Care Provider: Sapphire Sanford Other Providers: Sandoval Burleson Other Interventions: Discharge Summary Assessment (RN) Last Done: 12/12/21 12:32 Supervising Physician Co-Signing Physician Notes Dr. Jensen
== END 2021-12-12 14:35 ==
LOC: 3E 05:22 → ASU 05:22